=== PATIENT | male | born 1985 | race Caucasian/White ===

== ENCOUNTER 2023-03-18 16:44 | Emergency (ER) | payer MEDICAID ==
[2023-03-18 16:58] VITALS: BP 144/94
--- NOTE | 2023-03-18 17:12 | ED Physician Documentation ---
<Kenan Ibrahim - Last Filed: 03/18/23 21:43> PD HPI SKIN - Stated complaint Stated Complaint: LT LEG SWOLLEN - Chief complaint Chief Complaint: Ext Problem - History obtained from History obtained from: Patient - History of Present Illness Timing - onset: How many months ago (just over 2 months) Timing - duration: Months (over 2 months.) Timing - details: Still present (he has had swelling of both lower legs, with some pitting edema and developed some blistering with clear weeping in December. Some skin rash/ red speckles. No purulence from skin. Wax and wane degree of symptoms but not completely resolved. Has increased edema again the past 1-2 weeks, with redness left.), Waxing and waning Location: LUE, RLE Quality / character: Swelling, Other (red speckles rash on and off. Has red warm rash area around left calf skin sore for few days.). No: Raised, Vesicular Associated symptoms: No: Fever, Myalgias, Facial swelling, N/V/D Contributing factors: No: Exposed to food (he is allergic to several foods. No environmental allergies/exposures correlating with this rash.), Insect bite /sting, Recent illness Similar symptoms before: No diagnosis (mild degrees of symptoms in the past year or so.) Recently seen: Not recently seen Review of Systems Constitutional: reports: Myalgias. denies: Fever, Chills Nose: denies: Rhinorrhea / runny nose, Congestion Throat: denies: Sore throat Cardiac: denies: Chest pain / pressure, Palpitations Respiratory: denies: Dyspnea, Cough GI: reports: Constipation. denies: Abdominal Pain, Vomiting, Diarrhea Skin: reports: Rash Musculoskeletal: reports: Extremity swelling Neurologic: reports: Generalized weakness. denies: Near syncope Endocrine: reports: Weight gain. denies: Weight loss PD PAST MEDICAL HISTORY - Past Medical History Past Medical History: Yes Cardiovascular: None Respiratory: None Neuro: None Endocrine/Autoimmune: None GI: Other : None HEENT: None Psych: None Musculoskeletal: Osteoarthritis Derm: None - Past Surgical History Past Surgical History: Yes Ortho: Arthroscopic surgery - Present Medications Home Medications: Ambulatory Orders Medication Instructions Recorded Confirmed Furosemide [Lasix] 20 mg PO DAILY 7 Days #7 tablet 03/18/23 cephALEXin [Keflex] 500 mg PO QID #28 cap 03/18/23 - Allergies Allergies/Adverse Reactions: Allergies Allergy/AdvReac Type Severity Reaction Status Date / Time No Known Drug Allergies Allergy Verified 03/18/23 16:51 - Living Situation Living Situation: reports: With family Living Arrangement: reports: At home - Social History Does the pt smoke?: Yes Smoking Status: Current every day smoker Does the pt drink ETOH?: Yes Substance Use and Type: Marijuana, Other (fentanyl) - Immunizations Immunizations are current?: Yes PD ED PE NORMAL - Vitals Vital signs reviewed: Yes - General General: Alert and oriented X 3, Well developed/nourished - HEENT HEENT: Moist mucous membranes, Pharynx benign - Neck Neck: Supple, no meningeal sign, No adenopathy - Cardiac Cardiac: RRR, No murmur - Respiratory Respiratory: Clear bilaterally - Abdomen Abdomen: Soft, Non distended, No organomegaly. No: Normal bowel sounds - Derm Derm: Normal color, Warm and dry - Extremities Extremities: Normal ROM s pain, Other (2+ edema pitting on both legs with somewhat more left. There is superficial wound through part skin layer and has weeping clear fluid, without purulence. There is redness surrounding this, with extending some to popliteal area. Firmness of the calf. ) - Neuro Neuro: Alert and oriented X 3, No motor deficit, No sensory deficit, Normal speech Results - Rads (name of study) duplex lower extremities Relevant Findings:: EMP independent interpretation of test (no acute infiltrate. No CHF. ), See rad report PD Medical Decision Making - ED course Complexity details: reviewed results, considered differential (does not seem to have CHF. Concern for increased edema in legs and can get Duplex to ensure not DVT. The left calf does have skin abrasion/lac, with clear weeping. Got culture to eval for celluitis surrounding. CK lab to eval for muscle involvement. ), d/w patient ED course: will get labs to eval lytes, CK, WBC. Duplex to eval for DVT. He and his mother also reveal that the patient is a fentanyl abuser. He would like to be able to stop. [facility] closed right now for new patients. To try calling tomorrow. Departure - Departure Disposition: 01 Home, Self Care Clinical Impression: Bilateral leg edema, Opioid use disorder Lower extremity cellulitis Qualifiers: Laterality: left Qualified Code(s): L03.116 - Cellulitis of left lower limb Condition: Stable Record reviewed to determine appropriate education?: Yes Instructions: ED Infec Skin Cellulitis, ED Edema Legs Bilateral Prescriptions: cephALEXin [Keflex] 500 mg PO QID #28 cap Furosemide [Lasix] 20 mg PO DAILY 7 Days #7 tablet Comments: Your blood count and chemistry panel are within normal limits. You do have the edema in both legs. This looks potentially like a irritation of the skin rather than an infection per se although there is the redness and weeping on the left calf. We can treat with cephalexin for potential cellulitis/wound infection. I did do a culture and that should result in a couple of days and we can see if we need to modify the antibiotic choice based on that. Otherwise we can go with water pill/diuretic to help with the swelling in your legs. I wrote a prescription for a weeks worth of that. See how much improvement you have over the next week. Follow-up with the walk- in clinic or your primary care if not improving well over the next several days to week. Regarding your fentanyl abuse, call [facility] treatment center tomorrow and see if they have any spaces available as you did state you would like to get detox. Their phone number is [phone] Forms: PCP List Discharge Date/Time: 03/18/23 20:24 <Carol Garcia - Last Filed: 03/19/23 00:23> Results - Vitals Vitals: Vital Signs - 24 hr 03/18/23 16:51 Temperature 36.4 C L Heart Rate 102 H Respiratory 18 Rate Blood Pressure 144/94 H O2 Saturation 97 Oxygen O2 Source Room air - Labs Labs: Microbiology 03/18/23 17:29 Wound Culture - Preliminary Leg - Left Laboratory Tests 03/18/23 03/18/23 18:02 18:02 WBC 6.2 RBC 4.75 Hgb 13.8 L Hct 41.1 L MCV 86.5 MCH 29.1 MCHC 33.6 RDW 13.1 Plt Count 326 MPV 9.4 Neut # (Auto) 3.6 Lymph # (Auto) 1.9 Burt # (Auto) 0.5 Eos # (Auto) 0.2 Baso # (Auto) 0.0 Absolute Nucleated RBC 0.00 Nucleated RBC % 0.0 Sodium 138 Potassium 3.7 Chloride 105 Carbon Dioxide 31 Anion Gap 2.0 L BUN 24 H Creatinine 0.8 Estimated GFR (MDRD) 109 Glucose 94 Calcium 9.5 Magnesium 1.8 Total Bilirubin 0.3 AST 23 ALT 22 Alkaline Phosphatase 101 Total Creatine Kinase 94 C-Reactive Protein 1.4 Total Protein 7.3 Albumin 4.2 Globulin 3.1 Albumin/Globulin Ratio 1.4 Lipase 25 PD Medical Decision Making - ED course ED course: US negative for acute findings.
[2023-03-18] MEDS ORDERED: cephALEXin 250 MG CAPSULE PO STA (17:44)
[2023-03-18 18:08] LABS: BASOPHILS % (AUTO) 0.5 %; EOSINOPHILS # (AUTO) 0.2 10^3/uL (0.0-0.7); EOSINOPHILS % (AUTO) 3.7 %; HCT - HEMATOCRIT 41.1 % (42.0-52.0); HGB - HEMOGLOBIN 13.8 g/dL (14.0-18.0); LYMPHOCYTES # (AUTO) 1.9 10^3/uL (1.5-3.5); LYMPHOCYTES % (AUTO) 30.1 %; MEAN CORPUSCULAR HEMOGLOBIN 29.1 pg (27.0-31.0); MEAN CORPUSCULAR HGB CONC 33.6 g/dL (32.0-36.0); MEAN CORPUSCULAR VOLUME 86.5 fL (80.0-94.0); MEAN PLATELET VOLUME 9.4 fL (7.4-11.4); MONOCYTES # (AUTO) 0.5 10^3/uL (0.0-1.0); MONOCYTES % (AUTO) 7.7 %; NEUTROPHILS # (AUTO) 3.6 10^3/uL (1.5-6.6); NEUTROPHILS % (AUTO) 57.8 %; PLT - PLATELET COUNT 326 10^3/uL (130-450); RED BLOOD COUNT 4.75 10^6/uL (4.70-6.10); RED CELL DISTRIBUTION WIDTH 13.1 % (12.0-15.0); WHITE BLOOD COUNT 6.2 x10^3/uL (4.8-10.8)
[2023-03-18 18:20] LABS: ALBUMIN 4.2 g/dL (3.2-5.5); ALBUMIN/GLOBULIN RATIO 1.4 (1.0-2.2); BILIRUBIN,TOTAL 0.3 mg/dL (0.2-1.0); CALCIUM 9.5 mg/dL (8.5-10.3); CREATININE 0.8 mg/dL (0.6-1.3); CRP - C-REACTIVE PROTEIN 1.4 mg/dL (<0.5); MAGNESIUM 1.8 mg/dL (1.7-2.3); POTASSIUM 3.7 mmol/L (3.5-4.5); TOTAL PROTEIN 7.3 g/dL (6.4-8.9)
--- NOTE | 2023-03-18 21:23 | Ultrasound Report ---
PROCEDURE: Duplex Ext Veins Bilateral INDICATIONS: Kenan Ibrahim MD TECHNIQUE: Real-time imaging, as well as color and pulse Doppler interrogation, were performed of the deep veins of both legs from the inguinal ligament to the popliteal fossa. COMPARISON: None. FINDINGS: The deep veins are normally compressible, and free of intraluminal thrombus. Color and pu lse Doppler demonstrate normal phasic intravascular flow. There is normal augmentation response to d istal compression maneuver. IMPRESSION: 1. No evidence of deep venous thrombosis in the right or left lower extremity. Reviewed by: Javier Perera MD on 03/18/2023 9:22 PM PDT Approved by: Javier Perera MD on 03/18/2023 9:22 PM PDT Station ID: [id number]
== END 2023-03-18 20:24 | disposition home or self-care (01) ==
LOC: ED 16:44
DX: R60.0 Localized edema (principal); L03.116 Cellulitis of left lower limb; F11.10 Opioid abuse, uncomplicated; F17.200 Nicotine dependence, unspecified, uncomplicated
CPT/HCPCS: 36415; 80053; 82550; 83690; 83735; 85025; 86140; 87070; 87205; 93970; 99284; A9270

== ENCOUNTER 2023-04-10 11:59 | Emergency (ER) | payer MEDICAID ==
[2023-04-10 12:24] VITALS: BP 153/102; O2SAT 99
[2023-04-10] MEDS ORDERED: BUPRENORPHINE/NALOXONE 8-2 MG TAB SL STA (12:43)
--- NOTE | 2023-04-10 12:44 | ED Physician Documentation ---
History of Present Illness - Stated complaint Stated Complaint: WITHDRAWL - Chief complaint Chief Complaint: General - History obtained from History obtained from: Patient - Additonal information Additional information: Last used fentanyl 3 days ago and is undergoing withdrawal with shakiness, anxiety, jitteriness, nausea. Would like to start Suboxone. Has been on Suboxone in the past. Has tried [place] and [place] but has not gotten a call back yet. PD PAST MEDICAL HISTORY - Past Medical History Cardiovascular: None Respiratory: None Neuro: None Endocrine/Autoimmune: None GI: Other : None HEENT: None Psych: None Musculoskeletal: Osteoarthritis Derm: None - Past Surgical History Past Surgical History: Yes Ortho: Arthroscopic surgery - Present Medications Home Medications: Ambulatory Orders Medication Instructions Recorded Confirmed Furosemide [Lasix] 20 mg PO DAILY 7 Days #7 tablet 03/18/23 cephALEXin [Keflex] 500 mg PO QID #28 cap 03/18/23 Buprenorphine HCl/Naloxone HCl 1 each SL BID #4 film 04/10/23 [Suboxone 8 mg-2 mg Sl Film] - Allergies Allergies/Adverse Reactions: Allergies Allergy/AdvReac Type Severity Reaction Status Date / Time No Known Drug Allergies Allergy Verified 03/18/23 16:51 - Social History Does the pt smoke?: Yes Smoking Status: Current every day smoker Does the pt drink ETOH?: Yes - Immunizations Immunizations are current?: Yes PD ED PE NORMAL - Vitals Vital signs reviewed: Yes - General General: Alert and oriented X 3, Other (Slightly anxious and jittery) - HEENT HEENT: Other (Dilated pupils) - Neuro Neuro: Alert and oriented X 3, Normal speech Eye Opening: Spontaneous Motor: Obeys Commands Verbal: Oriented GCS Score: 15 Results - Vitals Vitals: Vital Signs - 24 hr 04/10/23 12:15 Temperature 36.7 C Heart Rate 79 Respiratory 20 Rate Blood Pressure 153/102 H O2 Saturation 99 Oxygen O2 Source Room air PD Medical Decision Making - ED course ED course: 37-year-old gentleman undergoing withdrawal related to inhalational fentanyl/opioid use disorder. Prescribed 3 days of Suboxone and advised on a closer rehab possibility. Departure - Departure Disposition: 01 Home, Self Care Clinical Impression: Opioid use disorder Condition: Good Record reviewed to determine appropriate education?: Yes Instructions: ED Withdrawal Narcotic Prescriptions: Buprenorphine HCl/Naloxone HCl [Suboxone 8 mg-2 mg Sl Film] 1 each SL BID #4 film Comments: I [facility] your [facility] in [place]. We think you would benefit from admission for detoxification and/or rehabilitation from alcohol and/or drugs. The closest facility that does this is in [place]. It is: [facility] [address] [place] [address] Call them at [phone] to arrange an intake appointment. I am prescribing a short course of narcotic pain medication for you. These are potentially dangerous and addictive medications that should be used carefully. These medications may constipate you. Take an [id number] stool softener (docusate) twice daily with plenty of water while taking these medications. If you go 24 hours without a bowel movement, take [id number] miralax, per package instructions. Do not drink or drive while taking these medications. If you received narcotic or sedating medications while in the emergency department, do not drive for 24 hours. Store this medication in a safe, secure place and out of reach of children. It is a violation of federal law to give or sell this medication to another person or to use in a manner other than prescribed. The ED will not refill narcotic prescriptions, including prescriptions lost or stolen. To dispose of unwanted medications: 1. [facility] a [facility] box for medication in pill form only (no liquids) 8:00 am to 4:30 p.m. Thursday-Thursday in the lobby of the [facility], [address] [place] [address]. Empty pills into ziplock bag before disposal. Call [phone] for information. 2.[employer] is a free service available to all [facility] residents. Go to [email or web address] Note that many narcotic pain relievers also contain Tylenol/acetaminophen. Please ensure that your total dose of acetaminophen from all sources does not exceed 3 g (3000 mg) per day. Forms: PCP List
== END 2023-04-10 13:16 | disposition home or self-care (01) ==
LOC: ED 11:59
DX: F11.23 Opioid dependence with withdrawal (principal); F17.200 Nicotine dependence, unspecified, uncomplicated
CPT/HCPCS: 93005; 96372; 99283; G2215; J2060

== ENCOUNTER 2023-04-10 15:49 | Outpatient (CLI) | payer MEDICAID | END 2023-04-10 15:50 | disposition critical access hospital (66) | LOC: EMS 15:49 | DX: R52 Pain, unspecified (principal); R06.00 Dyspnea, unspecified | CPT/HCPCS: A0425; A0429 ==

== ENCOUNTER 2023-04-10 16:25 | Emergency (ER) | payer MEDICAID ==
[2023-04-10] MEDS ORDERED: LORazepam 2 MG/ML VIAL IVP STA (16:27)
--- NOTE | 2023-04-10 16:29 | ED Physician Documentation ---
History of Present Illness - Stated complaint Stated Complaint: WITHDRAWAL - History obtained from History obtained from: Patient - Additonal information Additional information: He was seen earlier in the day requesting Suboxone for fentanyl withdrawal. He was persistent that he was in withdrawal and it had been 3 days since he had used. Subsequent to getting Suboxone he started to feel worse, shaky, acute jumping out of his skin and nauseous. Because of the symptoms he smoked some fentanyl which was unhelpful for his symptoms. PD PAST MEDICAL HISTORY - Past Medical History Cardiovascular: None Respiratory: None Neuro: None Endocrine/Autoimmune: None GI: Other : None HEENT: None Psych: None Musculoskeletal: Osteoarthritis Derm: None - Past Surgical History Past Surgical History: Yes Ortho: Arthroscopic surgery - Present Medications Home Medications: Ambulatory Orders Medication Instructions Recorded Confirmed Furosemide [Lasix] 20 mg PO DAILY 7 Days #7 tablet 03/18/23 cephALEXin [Keflex] 500 mg PO QID #28 cap 03/18/23 Buprenorphine HCl/Naloxone HCl 1 each SL BID #4 film 04/10/23 [Suboxone 8 mg-2 mg Sl Film] - Allergies Allergies/Adverse Reactions: Allergies Allergy/AdvReac Type Severity Reaction Status Date / Time No Known Drug Allergies Allergy Verified 03/18/23 16:51 - Social History Does the pt smoke?: Yes Smoking Status: Current every day smoker Does the pt drink ETOH?: Yes - Immunizations Immunizations are current?: Yes PD ED PE NORMAL - Vitals Vital signs reviewed: Yes - General General: Alert and oriented X 3, Other (Anxious and jittery) - HEENT HEENT: PERRL (Mildly dilated pupils) - Cardiac Cardiac: RRR, No murmur - Respiratory Respiratory: No respiratory distress, Clear bilaterally - Abdomen Abdomen: Non tender - Derm Derm: Other (Sweaty) - Neuro Neuro: Alert and oriented X 3, Normal speech Results - Vitals Vitals: Vital Signs - 24 hr 04/10/23 16:31 Temperature 36.5 C Heart Rate 67 Respiratory 15 Rate Blood Pressure 125/95 H O2 Saturation 100 Oxygen O2 Source Room air - EKG (time done) 1632 EKG releavant findings:: EKG personally interpreted by author of this note. Relevant findings are: Rate: Rate (enter#) (83) Rhythm: NSR [place]: Normal Intervals: Normal [place] QRS: Normal Ischemia: Normal ST segments PD Medical Decision Making - ED course ED course: He presents in acute narcotic withdrawal after taking Suboxone so presume his above history of not taking fentanyl in 3 days was fictional/erroneous. Given divided dose of lorazepam with improvement and appearing normal on reexamination at 6:25 PM. Departure - Departure Disposition: 01 Home, Self Care Clinical Impression: Narcotic withdrawal Condition: Good Record reviewed to determine appropriate education?: Yes Instructions: ED Narcotic Abuse Comments: We think you would benefit from admission for detoxification and/or rehabilitation from alcohol and/or drugs. The closest facility that does this is in [place]. It is: [facility] [address] [address] Call them at [phone] to arrange an intake appointment.
[2023-04-10 16:35] VITALS: O2SAT 100
[2023-04-10] MEDS ORDERED: LORazepam 2 MG/ML VIAL IM STA ×2 (16:45→17:30)
[2023-04-10] MEDS ORDERED: NALOXONE HCL NASAL SPRAY KIT NAS STA (18:25)
[2023-04-10 18:59] VITALS: BP 147/91
== END 2023-04-10 18:58 | disposition home or self-care (01) ==
LOC: EDUNIT# → ED 16:25
DX: F11.23 Opioid dependence with withdrawal (principal)
CPT/HCPCS: 93005; 96372